=== PATIENT | male | born 1970 | race Caucasian/White ===

== ENCOUNTER → 2018-03-17 | Outpatient (REF) | payer BC | LOC: M LAB REF 09:26 | DX: J02.9 Acute pharyngitis, unspecified (principal) ==

== ENCOUNTER → 2020-08-19 | Outpatient (CLI) | payer BC ==
--- NOTE | 2020-08-19 11:26 | REP ---
INDICATION: NECK SWELLING. COMPARISON: None FINDINGS: The right lobe of the thyroid gland measures 6.3 x 4.8 x 3.6 cm and the left lobe measures 4.8 x 1.5 x 1.7 cm. The isthmus measures 4.6 mm. Within the right lobe of the thyroid gland there is a large solid nodule which measures 2 x 3.4 x 4.4 cm. There are 2 mm sized nodules in the left lobe. IMPRESSION: Large thyroid nodule on the right as described above. Consider follow-up with radio iodide thyroid scintigraphy. <Electronically signed by Dalton Carcamo > 08/19/20 112
== END ==
LOC: M RAD 10:43
PROVIDERS: ATTEND Physician Assistant Medical
DX: E04.1 Nontoxic single thyroid nodule (principal); R22.1 Localized swelling, mass and lump, neck

== ENCOUNTER → 2020-09-16 | Outpatient (REF) | payer BC | LOC: M LAB REF 17:24 | PROVIDERS: ATTEND Internal Medicine Endocrinology, Diabetes & Metabolism | DX: E04.1 Nontoxic single thyroid nodule (principal) ==

== ENCOUNTER → 2021-05-16 | Outpatient (CLI) | payer BC | LOC: M LABSMTC 09:15 | PROVIDERS: ATTEND Anesthesiology | DX: Z01.812 Encounter for preprocedural laboratory examination (principal); Z20.822 Contact with and (suspected) exposure to COVID-19 ==

== ENCOUNTER → 2024-06-28 | Outpatient (REF) | payer BC ==
[2024-06-29 12:17] LABS: PSA FREE 0.9 ng/mL; PSA TOTAL 4.2 ng/mL (< OR = 4.0)
== END ==
LOC: M LAB REF 12:38
PROVIDERS: ATTEND Family Medicine
DX: R97.20 Elevated prostate specific antigen [PSA] (principal)